=== PATIENT | male | born 1945 | race Caucasian/White ===

== ENCOUNTER 2022-06-25 22:32 | Emergency (ER) | payer MEDICARE, OTHER ==
[~2022-06-25] VITALS: Ht 172.7 cm; Wt 83.8 kg
[2022-06-25 23:12] LABS: BASOPHILS % (AUTO) 0.3 % (0-1); EOSINOPHILS # (AUTO) 0.1 X10'3 (0-0.9); EOSINOPHILS % (AUTO) 2.1 % (0-6); HEMOGLOBIN 14.8 g/dl (14.0-17.9); LYMPHOCYTES # (AUTO) 0.9 X10'3 (1.1-4.8); MEAN CORPUSCULAR HEMOGLOBIN 30.6 PG (27.0-31.0); MEAN CORPUSCULAR HGB CONC 33.6 g/dL (33.0-36.5); MEAN CORPUSCULAR VOLUME 91.2 FL (78-98); MEAN PLATELET VOLUME 7.6 FL (7.4-10.4); MONOCYTES # (AUTO) 0.6 X10'3 (0-0.9); MONOCYTES % (AUTO) 9.7 % (2-12); NEUTROPHILS % (AUTO) 73.9 % (42-75); PLATELET COUNT 251 X10'3 (140-440); RED BLOOD COUNT 4.82 X10'6 (4.70-6.10); RED CELL DISTRIBUTION WIDTH 13.4 % (11.5-14.5); WHITE BLOOD COUNT 6.7 X10'3 (4.5-11.0)
[2022-06-25 23:23] LABS: APTT 27 SECONDS (22-32)
[2022-06-25 23:26] LABS: ALANINE AMINOTRANSFERASE 31 U/L (12-78); ALBUMIN 4.1 G/DL (3.4-5.0); ALBUMIN/GLOBULIN RATIO 1.1 (1.1-1.5); ALKALINE PHOSPHATASE 89 IU/L (46-116); ANION GAP 10 (8-16); ASPARTATE AMINO TRANSFERASE 20 U/L (10-37); BILIRUBIN,TOTAL 0.3 MG/DL (0.1-1.0); BLOOD UREA NITROGEN 22 MG/DL (7-18); BUN/CREATININE RATIO 18.8 (10.0-20.0); CALCIUM 9.1 MG/DL (8.5-10.1); CHLORIDE 104 MMOL/L (99-107); CREATININE 1.17 MG/DL (0.60-1.10); GLUCOSE 113 MG/DL (70-104); POTASSIUM 3.7 MMOL/L (3.5-5.1); SODIUM 139 MMOL/L (135-145); TOTAL CARBON DIOXIDE 24.7 MMOL/L (24-32); TOTAL PROTEIN 7.7 G/DL (6.4-8.2); eGFR 61 ML/MIN
[2022-06-25] MEDS ORDERED: normal saline 1000ml 1,000 ML IV ONE (23:35)
[2022-06-25] MEDS ORDERED: iohexol 350MG/ML 100ml bottle IV ONE (23:47)
--- NOTE | 2022-06-26 00:07 | NUR ---
[facility] [employer] [phone]. PLEASE CALL WITH ANY CONCERNS
[2022-06-26 00:58] LABS: CLARITY,URINE CLEAR (Clear); COLOR,URINE YELLOW (Yellow); GLUCOSE, URINE NEGATIVE (Neg); KETONES,URINE NEGATIVE (Neg); LEUKOCYTE ESTERASE ,URINE NEGATIVE (Neg); NITRITES, URINE NEGATIVE (Neg); OCCULT BLOOD,URINE NEGATIVE (Neg); PROTEIN,URINE NEGATIVE (Neg); UROBILINOGEN,URINE 0.2 E.U/dL (0.2-1.0)
--- NOTE | 2022-06-26 00:59 | NUR ---
PLEASE CALL CELL IF CAN'T REACH ON OTHER PHONE [phone]
[2022-06-26 01:03] LABS: UA COLLECTION TYPE CLN CATCH MIDSTREAM
[2022-06-26 01:38] VITALS: BP 168/93
== END 2022-06-26 01:38 | disposition home or self-care (01) ==
LOC: ER 22:33
DX: R41.3 Other amnesia (principal); I10 Essential (primary) hypertension; I50.9 Heart failure, unspecified
CPT/HCPCS: 36415; 70450; 70496; 70498; 71045; 80053; 81003; 83880; 84484; 85025; 85610; 85730; 99285; J3490; J7030; Q9967; 93005